=== PATIENT | male | born 1975 | race African-American/Black ===

== ENCOUNTER → 2017-07-28 | Outpatient (CLI) | payer OTHER ==
[2014-04-23 14:23] VITALS: BP 176/83
== END | disposition home or self-care (01) ==
LOC: SPEC 10:50 → EEVIPCON 10:50
PROVIDERS: ATTEND Nurse Practitioner Family
DX: I36.0 Nonrheumatic tricuspid (valve) stenosis (principal); Z72.0 Tobacco use; R79.89 Other specified abnormal findings of blood chemistry
CPT/HCPCS: 36415; 85610

== ENCOUNTER → 2017-08-25 | Outpatient (CLI) | payer OTHER ==
[2014-04-23 14:23] VITALS: BP 176/83
== END | disposition home or self-care (01) ==
LOC: SPEC 08:54 → EEVIPCON 08:54
PROVIDERS: ATTEND Nurse Practitioner Family
DX: Z51.81 Encounter for therapeutic drug level monitoring (principal); Z95.2 Presence of prosthetic heart valve
CPT/HCPCS: 36415; 85610

== ENCOUNTER → 2017-09-22 | Outpatient (CLI) | payer OTHER ==
[2014-04-23 14:23] VITALS: BP 176/83
== END | disposition home or self-care (01) ==
LOC: EEVIPCON 10:32 → SPEC 10:32
PROVIDERS: ATTEND Nurse Practitioner Family
DX: Z51.81 Encounter for therapeutic drug level monitoring (principal); Z79.01 Long term (current) use of anticoagulants
CPT/HCPCS: 36415; 85610

== ENCOUNTER → 2017-10-27 | Outpatient (CLI) | payer OTHER ==
[2014-04-23 14:23] VITALS: BP 176/83
== END | disposition home or self-care (01) ==
LOC: SPEC 11:29
PROVIDERS: ATTEND Nurse Practitioner Family
DX: I38 Endocarditis, valve unspecified (principal); Z79.01 Long term (current) use of anticoagulants; Z95.2 Presence of prosthetic heart valve
CPT/HCPCS: 36415; 85610

== ENCOUNTER → 2017-11-25 | Outpatient (CLI) | payer OTHER ==
[2014-04-23 14:23] VITALS: BP 176/83
== END | disposition home or self-care (01) ==
LOC: EEVIPCON 13:27 → SPEC 13:27
PROVIDERS: ATTEND Nurse Practitioner Family
DX: I36.0 Nonrheumatic tricuspid (valve) stenosis (principal); Z95.2 Presence of prosthetic heart valve
CPT/HCPCS: 36415; 85610

== ENCOUNTER → 2017-12-22 | Outpatient (CLI) | payer OTHER ==
[2014-04-23 14:23] VITALS: BP 176/83
== END | disposition home or self-care (01) ==
LOC: SPEC 08:36
PROVIDERS: ATTEND Nurse Practitioner Family
DX: Z53.9 Procedure and treatment not carried out, unspecified reason (principal); I36.8 Other nonrheumatic tricuspid valve disorders
CPT/HCPCS: 36415

== ENCOUNTER → 2018-01-26 | Outpatient (CLI) | payer OTHER ==
[2014-04-23 14:23] VITALS: BP 176/83
== END | disposition home or self-care (01) ==
LOC: SPEC 01:31
PROVIDERS: ATTEND Nurse Practitioner Family
DX: I73.9 Peripheral vascular disease, unspecified (principal)
CPT/HCPCS: 36415; 85610

== ENCOUNTER → 2018-02-23 | Outpatient (CLI) | payer OTHER ==
[2014-04-23 14:23] VITALS: BP 176/83
== END | disposition home or self-care (01) ==
LOC: EEVIPCON 09:00 → SPEC 09:00
PROVIDERS: ATTEND Nurse Practitioner Family
DX: I36.8 Other nonrheumatic tricuspid valve disorders (principal)
CPT/HCPCS: 36415; 85610

== ENCOUNTER → 2018-03-30 | Outpatient (CLI) | payer OTHER ==
[2014-04-23 14:23] VITALS: BP 176/83
== END | disposition home or self-care (01) ==
LOC: EEVIPCON 08:29 → SPEC 08:29
PROVIDERS: ATTEND Nurse Practitioner Family
DX: I36.0 Nonrheumatic tricuspid (valve) stenosis (principal)
CPT/HCPCS: 36415; 85610

== ENCOUNTER → 2018-04-27 | Outpatient (CLI) | payer OTHER ==
[2014-04-23 14:23] VITALS: BP 176/83
== END | disposition home or self-care (01) ==
LOC: EEVIPCON 09:05 → SPEC 09:05
PROVIDERS: ATTEND Nurse Practitioner Family
DX: I36.8 Other nonrheumatic tricuspid valve disorders (principal)
CPT/HCPCS: 36415; 85610

== ENCOUNTER → 2018-05-25 | Outpatient (CLI) | payer OTHER ==
[2014-04-23 14:23] VITALS: BP 176/83
== END | disposition home or self-care (01) ==
LOC: SPEC 09:16 → EEVIPCON 09:16
PROVIDERS: ATTEND Nurse Practitioner Family
DX: I36.0 Nonrheumatic tricuspid (valve) stenosis (principal)
CPT/HCPCS: 36415; 85610

== ENCOUNTER → 2018-06-22 | Outpatient (CLI) | payer OTHER ==
[2014-04-23 14:23] VITALS: BP 176/83
== END | disposition home or self-care (01) ==
LOC: SPEC 10:03 → EEVIPCON 10:03
PROVIDERS: ATTEND Nurse Practitioner Family
DX: I36.8 Other nonrheumatic tricuspid valve disorders (principal)
CPT/HCPCS: 36415; 85610